=== PATIENT | male | born 1955 | race Caucasian/White ===

== ENCOUNTER 2018-08-15 10:42 | Day surgery (SDC) | payer MEDICARE, OTHER ==
[~2018-08-15 10:42] MED LIST: CEFAZOLIN 1 GM INJ; EPHEDrine SULFATE 50 MG/5 ML SYG; SEVOFLURANE 15 MIN
[2018-08-15] MEDS ORDERED: SOD CHLORIDE 0.9% 1,000 ML IV (11:00)
[2018-08-15] MEDS ORDERED: CEFAZOLIN 2 GM/50 ML (PMX) 50 ML IVPB (11:00)
[2018-08-15] MEDS ORDERED: BUPIVACAINE 0.5% (SDV) 30 ML INJ (13:14)
[2018-08-15] MEDS ORDERED: ROCURONIUM 50 MG INJ (13:39)
[2018-08-15] MEDS ORDERED: LIDOCAINE 2% (SDV) 5 ML INJ (13:39)
[2018-08-15] MEDS ORDERED: PROPOFOL 20 ML (13:39)
[2018-08-15] MEDS ORDERED: NEOSTIGMINE 3 MG/3 ML SYRINGE ×2 (13:39→14:08)
[2018-08-15] MEDS ORDERED: GLYCOPYRROLATE 0.4 MG INJ ×2 (13:39→14:08)
[2018-08-15] MEDS ORDERED: SUCCINYLCHOLINE CHLORIDE 100 MG/5 ML SYG IV (13:39)
[2018-08-15] MEDS ORDERED: hydrALAzine 20 MG INJ IV (14:00)
[2018-08-15] MEDS ORDERED: METOCLOPRAMIDE 10 MG INJ IV (14:00)
[2018-08-15] MEDS ORDERED: FENTAnyl 50 MCG/ML VIAL IV ×2 (14:00)
[2018-08-15] MEDS ORDERED: LABETALOL HCL 20MG INJ IV (14:00)
[2018-08-15] MEDS ORDERED: DIPHENHYDRAMINE 50 MG INJ IV (14:00)
[2018-08-15] MEDS ORDERED: MIDAZOLAM 1 MG/ML 2 ML INJ IV (14:00)
[2018-08-15] MEDS ORDERED: HYDROmorphONE 1 MG/5 ML IV SYRINGE IV ×3 (14:00)
[2018-08-15] MEDS ORDERED: EPHEDrine SULFATE 50 MG/5 ML SYG IV (14:00)
[2018-08-15] MEDS ORDERED: OXYCODONE/ACETAMINOPHEN (5/325) TAB PO ×2 (14:00)
[2018-08-15] MEDS ORDERED: MEPERIDINE 25 MG INJ IV (14:00)
[2018-08-15] MEDS: POLYMYXIN/BACITRACIN 1L IRRIG (14:08)
[2018-08-15] MEDS: BUPIVACAINE 0.25% (MPF) 30 ML INJ (14:08)
[2018-08-15] MEDS ORDERED: KETOROLAC 30 MG INJ IV (15:00)
[2018-08-15] MEDS ORDERED: ONDANSETRON 4 MG INJ IV (15:00)
[2018-08-15] MEDS ORDERED: IBUPROFEN 600 MG TAB PO (15:00)
[2018-08-15] MEDS ORDERED: HYDROCODONE/APAP (5/325) TAB PO ×2 (15:00)
[2018-08-15] MEDS: ONDANSETRON 4 MG INJ IV (15:22)
[2018-08-15] MEDS: FENTAnyl 50 MCG/ML VIAL IV (15:22)
== END 2018-08-15 17:15 | disposition home or self-care (01) ==
LOC: SDS 10:42
DX: K42.9 Umbilical hernia without obstruction or gangrene (principal); J44.9 Chronic obstructive pulmonary disease, unspecified
CPT/HCPCS: 49585; 88302

== ENCOUNTER 2018-08-24 20:28 | Emergency (ER) | payer MEDICARE, OTHER ==
[2018-08-24 21:44] LABS: ADD MAN DIFF? NO
[2018-08-24 21:46] LABS: WHITE BLOOD COUNT 9.8 10^3/ul (4.8-10.8)
[2018-08-24 21:46] LABS: BASOPHILS % 0.3 % (0.0-2.0); EOSINOPHILS # 0.6 10^3/ul (0.0-0.5); EOSINOPHILS % 6.4 % (0.0-7.0); HEMATOCRIT 43.6 % (42.0-52.0); HEMOGLOBIN 14.8 g/dl (14.0-18.0); LYMPHOCYTES # 1.5 10^3/ul (0.8-2.9); LYMPHOCYTES % 15.2 % (15.0-51.0); MEAN CORPUSCULAR HEMOGLOBIN 34.2 pg (29.0-33.0); MEAN CORPUSCULAR HGB CONC 33.9 g/dl (32.0-37.0); MEAN CORPUSCULAR VOLUME 100.7 fl (82.0-101.0); MEAN PLATELET VOLUME 9.6 fl (7.4-10.4); MONOCYTES % 9.7 % (0.0-11.0); NEUTROPHIL # 6.6 10^3/ul (1.6-7.5); NEUTROPHILS % 68.1 % (39.0-77.0); PLATELET COUNT 192 10^3/UL (140-415); RED BLOOD COUNT 4.33 10^6/ul (4.70-6.10); RED CELL DISTRIBUTION WIDTH 12.7 % (11.5-14.5)
[2018-08-24] MEDS: morphine 4 MG/ML VIAL IV (21:51)
[2018-08-24 22:13] LABS: ALANINE AMINOTRANSFERASE 37 IU/L (13-69); ALBUMIN 2.4 g/dl (3.3-4.9); ALBUMIN/GLOBULIN RATIO 1.14; ALKALINE PHOSPHATASE 69 IU/L (42-121); ANION GAP 2 (5-13); ASPARTATE AMINO TRANSFERASE 31 IU/L (15-46); BILIRUBIN,INDIRECT 0.3 mg/dl (0-1.1); BILIRUBIN,TOTAL 0.3 mg/dl (0.2-1.3); BLOOD UREA NITROGEN 6 mg/dl (7-20); CALCIUM 7.1 mg/dl (8.4-10.2); CARBON DIOXIDE 23 mmol/L (21-31); CHLORIDE 115 mmol/L (97-110); Estimated GFR > 60 mL/min (>60); GLUCOSE 73 mg/dl (70-220); SODIUM 140 mmol/L (135-144); TOTAL PROTEIN 4.5 g/dl (6.1-8.1)
[2018-08-24 22:22] LABS: POTASSIUM 2.9 mmol/L (3.5-5.1)
[2018-08-24] MEDS: SOD CHLORIDE 0.9% 100 ML (22:29)
[2018-08-24] MEDS: IODIXANOL LOCM 100 ML BTL (22:29)
[2018-08-24] MEDS: MAGNESIUM SULFATE 2 GM/50 ML 50 ML IVPB (22:50)
[2018-08-24] MEDS: POTASSIUM CHLORIDE (SR) 20 MEQ TAB PO (22:50)
[2018-08-24 23:41] LABS: ADD UMIC NO; UR ASCORBIC ACID NEGATIVE (NEGATIVE); UR BILIRUBIN (Dip) NEGATIVE (NEGATIVE); UR BLOOD (Dip) NEGATIVE (NEGATIVE); UR CLARITY CLEAR (CLEAR); UR COLOR STRAW (YELLOW); UR GLUCOSE (Dip) NEGATIVE (NEGATIVE); UR KETONES (Dip) NEGATIVE (NEGATIVE); UR LEUKOCYTE ESTERASE (Dip) NEGATIVE Leu/ul (NEGATIVE); UR NITRITE (Dip) NEGATIVE (NEGATIVE); UR TOTAL PROTEIN (Dip) NEGATIVE (NEGATIVE); UR UROBILINOGEN (Dip) NEGATIVE (NEGATIVE)
[2018-08-25] MEDS: HYDROCODONE/APAP (5/325) TAB PO (02:46)
== END 2018-08-25 02:50 | disposition home or self-care (01) ==
LOC: E/R 08-25 02:50
DX: R10.33 Periumbilical pain (principal); E87.6 Hypokalemia; Z79.82 Long term (current) use of aspirin
CPT/HCPCS: 36415; 74177; 80053; 81003; 85025; 96374; 99285-25

== ENCOUNTER 2018-08-30 11:21 | Emergency (ER) | payer MEDICARE, OTHER | END 2018-08-30 17:22 | disposition home or self-care (01) | LOC: E/R 11:21 | DX: Z48.01 Encounter for change or removal of surgical wound dressing (principal); Z79.82 Long term (current) use of aspirin | CPT/HCPCS: 99281 ==

== ENCOUNTER 2018-10-10 01:45 | Emergency (ER) | payer MEDICARE, OTHER ==
[2018-10-10] MEDS: ALBUTEROL 0.083% (NEB) 2.5 MG/3 ML AMP HHN (02:28)
[2018-10-10] MEDS: IPRATROPIUM (NEB) 0.5 MG/2.5 ML AMP INH (02:28)
[2018-10-10 03:10] LABS: ADD MAN DIFF? NO
[2018-10-10 03:12] LABS: ABNORMAL IP MESSAGE 1; BASOPHILS % 0.1 % (0.0-2.0); EOSINOPHILS # 0.2 10^3/ul (0.0-0.5); EOSINOPHILS % 1.4 % (0.0-7.0); HEMATOCRIT 41.1 % (42.0-52.0); HEMOGLOBIN 13.8 g/dl (14.0-18.0); LYMPHOCYTES # 1.3 10^3/ul (0.8-2.9); LYMPHOCYTES % 8.3 % (15.0-51.0); MEAN CORPUSCULAR HEMOGLOBIN 34.3 pg (29.0-33.0); MEAN CORPUSCULAR HGB CONC 33.6 g/dl (32.0-37.0); MEAN CORPUSCULAR VOLUME 102.2 fl (82.0-101.0); MEAN PLATELET VOLUME 10.1 fl (7.4-10.4); MONOCYTE # 2.1 10^3/ul (0.3-0.9); NEUTROPHIL # 11.4 10^3/ul (1.6-7.5); NEUTROPHILS % 75.7 % (39.0-77.0); PLATELET COUNT 181 10^3/UL (140-415); POSITIVE DIFF @See below; RED BLOOD COUNT 4.02 10^6/ul (4.70-6.10)
[2018-10-10] MEDS: SOD CHLORIDE 0.9% 500 ML IV (03:15)
[2018-10-10] MEDS: IBUPROFEN 600 MG TAB PO (03:19)
[2018-10-10 03:41] LABS: ALANINE AMINOTRANSFERASE 21 IU/L (13-69); ALBUMIN 3.7 g/dl (3.3-4.9); ALBUMIN/GLOBULIN RATIO 1.23; ALKALINE PHOSPHATASE 119 IU/L (42-121); ANION GAP 9 (5-13); ASPARTATE AMINO TRANSFERASE 37 IU/L (15-46); BLOOD UREA NITROGEN 16 mg/dl (7-20); CALCIUM 8.9 mg/dl (8.4-10.2); CARBON DIOXIDE 27 mmol/L (21-31); CHLORIDE 101 mmol/L (97-110); CREATININE 0.79 mg/dl (0.61-1.24); Estimated GFR > 60 mL/min (>60); GLUCOSE 100 mg/dl (70-220); POTASSIUM 3.7 mmol/L (3.5-5.1); SODIUM 137 mmol/L (135-144); TOTAL PROTEIN 6.7 g/dl (6.1-8.1)
[2018-10-10 03:50] LABS: B-TYPE NATRIURETIC PEPTIDE 53 PG/ML (0-125); TROPONIN-I < 0.012 ng/ml (0.000-0.120)
== END 2018-10-10 08:48 | disposition home or self-care (01) ==
LOC: E/R 01:45
DX: R06.02 Shortness of breath (principal); R40.2142 Coma scale, eyes open, spontaneous, at arrival to emergency department; R40.2362 Coma scale, best motor response, obeys commands, at arrival to emergency department; R40.2252 Coma scale, best verbal response, oriented, at arrival to emergency department; Z79.82 Long term (current) use of aspirin
CPT/HCPCS: 36415; 71045; 80053; 83605; 83880; 84484; 85025; 87040; 94664; 99285-25

== ENCOUNTER 2018-11-01 09:20 | Emergency (ER) | payer MEDICARE, OTHER | END 2018-11-01 10:02 | disposition home or self-care (01) | LOC: FTE 09:20 | DX: M71.9 Bursopathy, unspecified (principal); F17.210 Nicotine dependence, cigarettes, uncomplicated; Z79.82 Long term (current) use of aspirin | CPT/HCPCS: 99283 ==

== ENCOUNTER 2018-11-21 10:17 | Emergency (ER) | payer MEDICARE, OTHER ==
[2018-11-21] MEDS: KETOROLAC 15 MG INJ IM (12:17)
== END 2018-11-21 14:29 | disposition home or self-care (01) ==
LOC: FTE 10:17
DX: M25.521 Pain in right elbow (principal); F17.210 Nicotine dependence, cigarettes, uncomplicated; F20.9 Schizophrenia, unspecified; Z79.82 Long term (current) use of aspirin
CPT/HCPCS: 73080; 73080-RT; 96372; 99284-25

== ENCOUNTER 2018-12-01 16:04 | Emergency (ER) | payer MEDICARE, OTHER ==
[2018-12-01] MEDS: KETOROLAC 30 MG INJ IM (17:23)
[2018-12-01 17:30] LABS: ADD MAN DIFF? NO
[2018-12-01 17:36] LABS: BASOPHIL # 0.1 10^3/ul (0.0-0.1); BASOPHILS % 0.6 % (0.0-2.0); EOSINOPHILS # 0.4 10^3/ul (0.0-0.5); EOSINOPHILS % 4.5 % (0.0-7.0); HEMOGLOBIN 14.1 g/dl (14.0-18.0); LYMPHOCYTES # 1.8 10^3/ul (0.8-2.9); LYMPHOCYTES % 20.8 % (15.0-51.0); MEAN CORPUSCULAR HEMOGLOBIN 33.6 pg (29.0-33.0); MEAN CORPUSCULAR HGB CONC 33.6 g/dl (32.0-37.0); MEAN PLATELET VOLUME 9.9 fl (7.4-10.4); MONOCYTE # 1.2 10^3/ul (0.3-0.9); MONOCYTES % 13.9 % (0.0-11.0); NEUTROPHIL # 5.3 10^3/ul (1.6-7.5); NEUTROPHILS % 59.7 % (39.0-77.0); PLATELET COUNT 190 10^3/UL (140-415); RED CELL DISTRIBUTION WIDTH 13.3 % (11.5-14.5)
[2018-12-01 17:36] LABS: WHITE BLOOD COUNT 8.8 10^3/ul (4.8-10.8)
[2018-12-01 17:57] LABS: ALANINE AMINOTRANSFERASE 30 IU/L (13-69); ALBUMIN 4.2 g/dl (3.3-4.9); ALBUMIN/GLOBULIN RATIO 1.44; ALKALINE PHOSPHATASE 88 IU/L (42-121); ANION GAP 9 (5-13); ASPARTATE AMINO TRANSFERASE 44 IU/L (15-46); BILIRUBIN,INDIRECT 0.1 mg/dl (0-1.1); BILIRUBIN,TOTAL 0.1 mg/dl (0.2-1.3); BLOOD UREA NITROGEN 16 mg/dl (7-20); CALCIUM 9.8 mg/dl (8.4-10.2); CARBON DIOXIDE 27 mmol/L (21-31); CHLORIDE 104 mmol/L (97-110); CREATININE 0.81 mg/dl (0.61-1.24); Estimated GFR > 60 mL/min (>60); GLUCOSE 101 mg/dl (70-220); POTASSIUM 4.1 mmol/L (3.5-5.1); SODIUM 140 mmol/L (135-144); TOTAL PROTEIN 7.1 g/dl (6.1-8.1)
== END 2018-12-01 18:53 | disposition home or self-care (01) ==
LOC: FTE 16:04
DX: M79.601 Pain in right arm (principal); Z79.82 Long term (current) use of aspirin; Z87.891 Personal history of nicotine dependence
CPT/HCPCS: 80053; 85025; 96372; 99284-25

== ENCOUNTER 2018-12-11 14:29 | Emergency (ER) | payer MEDICARE, OTHER ==
[2018-12-11] MEDS: KETOROLAC 60 MG INJ IM (16:50)
== END 2018-12-11 17:15 | disposition home or self-care (01) ==
LOC: FTE 14:29
DX: M79.601 Pain in right arm (principal); F17.210 Nicotine dependence, cigarettes, uncomplicated; Z79.82 Long term (current) use of aspirin
CPT/HCPCS: 96372; 99284-25

== ENCOUNTER 2018-12-17 09:24 | Emergency (ER) | payer MEDICARE, OTHER ==
[2018-12-17] MEDS: KETOROLAC 30 MG INJ IM (11:17)
== END 2018-12-17 11:24 | disposition home or self-care (01) ==
LOC: FTE 09:24
DX: M79.601 Pain in right arm (principal); Z79.82 Long term (current) use of aspirin; Z87.891 Personal history of nicotine dependence
CPT/HCPCS: 96372; 99284-25

== ENCOUNTER 2018-12-26 10:20 | Emergency (ER) | payer MEDICARE, OTHER ==
[2018-12-26] MEDS ORDERED: KETOROLAC 60 MG INJ IM (10:52)
[2018-12-26] MEDS: ACETAMINOPHEN 500 MG TAB PO (11:07)
== END 2018-12-26 11:13 | disposition home or self-care (01) ==
LOC: FTE 11:13
DX: M79.601 Pain in right arm (principal); I10 Essential (primary) hypertension; Z79.82 Long term (current) use of aspirin
CPT/HCPCS: 99282

== ENCOUNTER 2018-12-30 08:19 | Emergency (ER) | payer MEDICARE, OTHER ==
[2018-12-30] MEDS: ACETAMINOPHEN 325 MG TAB PO (08:54)
== END 2018-12-30 09:08 | disposition home or self-care (01) ==
LOC: FTE 08:19
DX: M79.601 Pain in right arm (principal); I10 Essential (primary) hypertension; F17.210 Nicotine dependence, cigarettes, uncomplicated; Z79.82 Long term (current) use of aspirin
CPT/HCPCS: 99282

== ENCOUNTER 2019-02-26 17:17 | Emergency (ER) | payer MEDICARE, OTHER | END 2019-02-26 20:14 | disposition home or self-care (01) | LOC: FTE 20:14 | DX: B35.3 Tinea pedis (principal); M79.601 Pain in right arm; M79.671 Pain in right foot; Z79.82 Long term (current) use of aspirin | CPT/HCPCS: 99283 ==